=== PATIENT | female | born 1995 | race Caucasian/White ===

== ENCOUNTER 2023-03-07 19:37 | Emergency (ER) | payer OTHER ==
[~2023-03-07] VITALS: Ht 170.2 cm; Wt 81.7 kg
[2023-03-07] MEDS ORDERED: HYDROCODON-ACE1 EA10 PO (21:30)
[2023-03-07] MEDS ORDERED: DOXYCYCLINE HY100 MG PO (21:30)
[2023-03-07 21:49] VITALS: BP 119/70
== END 2023-03-07 21:41 | disposition home or self-care (01) ==
LOC: ED 19:37
DX: L02.31 Cutaneous abscess of buttock (principal)
CPT/HCPCS: 10060; 87070; 87205; 99283-25; A9270